=== PATIENT | female | born 1995 | race African-American/Black ===

== ENCOUNTER 2016-06-21 22:44 | Emergency (ER) | payer OTHER ==
[~2016-06-21] VITALS: Ht 170.2 cm; Wt 81.2 kg
[2016-06-21 22:51] VITALS: TEMP 37.3; Ht 170.2 cm; Wt 81.2 kg
[2016-06-21] MEDS ORDERED: SODIUM CHLORIDE 0.9% 1000ML 1,000 ML IV STA ×2 (23:10)
[2016-06-21] MEDS ORDERED: ONDANSETRON INJ 2 MG/ML 2 ML VIAL IV STA (23:10)
[2016-06-21] MEDS ORDERED: LIDOCAINE HCL 2% VISC SOLN 20 ML UDC PO STA (23:10)
[2016-06-21] MEDS ORDERED: ALUMINUM/MAGNESIUM SUSP 30 ML UDC PO STA (23:10)
[2016-06-21 23:33] VITALS: O2SAT 100
[2016-06-21 23:58] LABS: BASO % 0.3 %; BASO ABS # 0.02 K/uL (0-0.2); COMPLETE YES; HEMATOCRIT 33.4 % (37-47); IG% 0.2 %; LYMPH % 37.1 %; LYMPH ABS # 2.35 K/uL (1.2-3.4); MEAN CORPUSCULAR HEMOGLOBIN 31.8 pg (25-34); MEAN CORPUSCULAR HGB CONC 35.3 g/dl (32-36); MEAN PLATELET VOLUME 9.6 fL (7.4-10.4); MONO % 10.1 %; NEUT % 47.3 %; PLATELET COUNT 310 K/uL (130-400); RED BLOOD COUNT 3.71 M/uL (4.2-5.4); WHITE BLOOD COUNT 6.34 K/uL (4.8-10.8)
[2016-06-22 00:04] LABS: URINE APPEARANCE CLOUDY (CLEAR); URINE BILIRUBIN NEG (NEG); URINE COLOR YELLOW; URINE EPITHELIAL CELL AUTO >30 /lpf (0-5); URINE NITRITE NEG (NEG); URINE PH 6.5 (4.5-7.5); URINE SPECIFIC GRAVITY 1.024 (1.000-1.030); UROBILINOGEN NEG (NEG); ZZUR CULT IF INDIC CLEAN CATCH YES
[2016-06-22 00:09] LABS: MANUAL MICROSCOPIC REQUIRED? NO; REVIEW REQ? NO
[2016-06-22 00:18] LABS: ALT/SGPT 16 U/L (12-78); BLOOD UREA NITROGEN 8 mg/dl (7-18); BUN/CREATININE RATIO 11.7 (10-20); CALCIUM 9.1 mg/dl (8.5-10.1); CARBON DIOXIDE 20 mmol/L (21-32); CHLORIDE 106 mmol/L (98-107); CREATININE 0.72 mg/dl (0.60-1.20); GLUCOSE 81 mg/dl (70-99); POTASSIUM 3.3 mmol/L (3.5-5.1); SODIUM 138 mmol/L (136-145)
[2016-06-22 00:27] LABS: ALKALINE PHOSPHATASE 52 U/L (45-117); AST/SGOT 14 U/L (15-37)
[2016-06-22 00:38] LABS: PREG INTERNAL NEGATIVE QC NEG CLEAR BACKGROUND
[2016-06-22 00:39] LABS: PREG INTERNAL POSITIVE QC POS CONTROL LINE
[2016-06-22] MEDS ORDERED: OPTIRAY 320 IV PRN (01:00)
--- NOTE | 2016-06-22 05:02 | EMERGENCY ROOM VISIT NOTE ---
History First contact with patient: 23:02 Chief Complaint: ABDOMINAL PAIN Stated Complaint: STOMACH PAINS, VOMITING, DIZZY Nursing Triage Summary: pt recently took a 4 week trip to [facility] to visit family. pt reports just before she came home she began to feel ill. since being home (3-4 weeks) she has had constant abdominal pain, nausea and vomiting. denies rash. denies diarrhea. pain is central abdomin. pt reports decreased appetite and pain worsens with eating "anything" History of Present Illness The patient is a 21 year old female who presents to the Emergency Room with complaints of shortness of breath, upper abdominal pain, nausea, light headedness for the past 3 weeks to flu back from [place]. Patient does not smoke. Patient denies chest pain, fever, chills, leg pain or swelling, diarrhea. She states she has irregular menstrual cycles. Patient denies chance or . Review of Systems See HPI for pertinent positives & negatives. A total of 10 systems reviewed and were otherwise negative. Past Medical/Surgical History None Social History Smoking Status: Never Smoker Alcohol Use: occasionally Drug Use: none Occupation Status: [employer] student Current/Historical Medications No Active Prescriptions or Reported Meds Allergies Coded Allergies: No Known Allergies (Unverified , 06/21/16) Physical Exam Vital Signs Date Time Temp Pulse Resp B/P Pulse Ox O2 Delivery O2 Flow Rate FiO2 06/22/16 03:53 81 18 130/77 100 Room Air 06/22/16 01:21 71 16 126/67 100 Room Air 06/21/16 23:40 93 06/21/16 23:33 100 Room Air 06/21/16 22:51 37.3 87 18 151/106 99 Room Air Physical Exam VITALS: Vitals are noted on the nurse's note and reviewed by myself. Vital signs stable. GENERAL: Pleasant female, in no acute distress, nondiaphoretic, well-developed well-nourished. SKIN: The skin was without rashes, erythema, edema, or bruising. There is no tenting of the skin. Capillary reflex less than 2 seconds. HEAD: Normocephalic atraumatic. EARS: External auditory canals clear, tympanic membranes pearly novoa without erythema or effusion bilaterally. EYES: Pupils equal round and reactive to light and accommodation. Conjunctivae without injection, sclerae without icterus. Extraocular movements intact. NOSE: Patent, turbinates without inflammation or discharge. MOUTH: Mucous membranes moist. Pharynx without erythema or exudate. Uvula midline. Airway patent. Tongue does not deviate. NECK: Supple without nuchal rigidity. No lymphadenopathy. No thyromegaly. Cervical spine is nontender. No JVD. HEART: Regular rate and rhythm without murmurs gallops or rubs. LUNGS: Clear to auscultation bilaterally without wheezes, rales or rhonchi. No dullness to percussion. No retractions or accessory muscle use. ABDOMEN: Positive bowel sounds x 4. Normal tympanic percussion. Soft, minimally tender to palpation epigastric region, no CVA tenderness, without masses or organomegaly. Alaniz sign negative. No guarding or rebound tenderness. MUSCULOSKELETAL: No muscle atrophy, erythema, or edema noted. NEURO: Patient was alert and oriented to person place and time. Normal sensation to light and sharp touch. No focal neurological deficits. Medical Decision & Procedures Laboratory Results 06/21/16 23:35 Red Blood Count 3.71, Mean Corpuscular Volume 90.0, Mean Corpuscular Hemoglobin 31.8, Mean Corpuscular Hemoglobin Concent 35.3, Mean Platelet Volume 9.6, Neutrophils (%) (Auto) 47.3, Lymphocytes (%) (Auto) 37.1, Monocytes (%) (Auto) 10.1, Eosinophils (%) (Auto) 5.0, Basophils (%) (Auto) 0.3, Neutrophils # (Auto ) 3.00, Lymphocytes # (Auto) 2.35, Monocytes # (Auto) 0.64, Eosinophils # (Auto ) 0.32, Basophils # (Auto) 0.02 06/21/16 23:35 Test 06/21/16 23:35 06/21/16 23:45 White Blood Count 6.34 K/uL (4.8-10.8) Red Blood Count 3.71 M/uL (4.2-5.4) Hemoglobin 11.8 g/dL (12.0-16.0) Hematocrit 33.4 % (37-47) Mean Corpuscular Volume 90.0 fL (80-100) Mean Corpuscular Hemoglobin 31.8 pg (25-34) Mean Corpuscular Hemoglobin Concent 35.3 g/dl (32-36) Platelet Count 310 K/uL (130-400) Mean Platelet Volume 9.6 fL (7.4-10.4) Neutrophils (%) (Auto) 47.3 % Lymphocytes (%) (Auto) 37.1 % Monocytes (%) (Auto) 10.1 % Eosinophils (%) (Auto) 5.0 % Basophils (%) (Auto) 0.3 % Neutrophils # (Auto) 3.00 K/uL (1.4-6.5) Lymphocytes # (Auto) 2.35 K/uL (1.2-3.4) Monocytes # (Auto) 0.64 K/uL (0.11-0.59) Eosinophils # (Auto) 0.32 K/uL (0-0.5) Basophils # (Auto) 0.02 K/uL (0-0.2) RDW Standard Deviation 42.6 fL (36.4-46.3) RDW Coefficient of Variation 13.0 % (11.5-14.5) Immature Granulocyte % (Auto) 0.2 % Immature Granulocyte # (Auto) 0.01 K/uL (0.00-0.02) D-Dimer 910 ug/L FEU (0-500) Anion Gap 12.0 mmol/L (3-11) Est Creatinine Clear Calc Drug Dose 134.4 ml/min Estimated GFR () 137.8 Estimated GFR (Non- 118.9 BUN/Creatinine Ratio 11.7 (10-20) Calcium Level 9.1 mg/dl (8.5-10.1) Magnesium Level 2.0 mg/dl (1.8-2.4) Total Bilirubin 0.2 mg/dl (0.2-1) Direct Bilirubin < 0.1 mg/dl (0-0.2) Aspartate Amino Transf (AST/SGOT) 14 U/L (15-37) Alanine Aminotransferase (ALT/SGPT) 16 U/L (12-78) Alkaline Phosphatase 52 U/L (45-117) Total Creatine Kinase 80 U/L (26-192) Creatine Kinase MB < 0.5 ng/ml (0.5-3.6) Creatine Kinase MB Ratio (0-3.0) Troponin I < 0.015 ng/ml (0-0.045) Total Protein 7.6 gm/dl (6.4-8.2) Albumin 3.4 gm/dl (3.4-5.0) Lipase 152 U/L (73-393) Thyroid Stimulating Hormone (TSH) 1.010 uIu/ml (0.300-4.500) Human Chorionic Gonadotropin, Qual POS (NEG) Human Chorionic Gonadotropin, Quant 95010 mIU/mL Urine Color YELLOW Urine Appearance CLOUDY (CLEAR) Urine pH 6.5 (4.5-7.5) Urine Specific Blanco 1.024 (1.000-1.030) Urine Protein NEG (NEG) Urine Glucose (UA) NEG (NEG) Urine Ketones NEG (NEG) Urine Occult Blood NEG (NEG) Urine Nitrite NEG (NEG) Urine Bilirubin NEG (NEG) Urine Urobilinogen NEG (NEG) Urine Leukocyte Esterase TRACE (NEG) Urine WBC (Auto) 10-30 /hpf (0-5) Urine RBC (Auto) 0-4 /hpf (0-4) Urine Hyaline Casts (Auto) 1-5 /lpf (0-5) Urine Epithelial Cells (Auto) >30 /lpf (0-5) Urine Bacteria (Auto) 2+ (NEG) Medications Administered Medications (Trade) Dose Ordered Sig/Rashaun Route Start Time Stop Time Status Last Admin Dose Admin Lidocaine HCl (Viscous Lidocaine 2% Soln) 10 ml NOW STAT PO 06/21/16 23:10 06/21/16 23:12 DC 06/21/16 23:45 10 ML Al Hydroxide/Mg Hydroxide 30 ml 30 ml NOW STAT PO 06/21/16 23:10 06/21/16 23:12 DC 06/21/16 23:45 30 ML Sodium Chloride 1,000 ml @ 999 mls/hr Q1H1M STAT IV 06/21/16 23:10 06/22/16 00:10 DC 06/21/16 23:44 999 MLS/HR Sodium Chloride (Nss 1000ml) 1,000 ml @ 125 mls/hr Q8H STAT IV 06/21/16 23:10 06/22/16 07:09 06/22/16 01:23 125 MLS/HR Ondansetron HCl (Zofran Inj) 4 mg NOW STAT IV 06/21/16 23:10 06/21/16 23:13 DC 06/21/16 23:45 4 MG ED Course Prior records/ancillary studies reviewed. Triage Nursing notes reviewed. The patient's history was concerning for nausea, vomiting, shortness of breath and abdominal pain. Differential diagnosis: Etiologies such as PE, cardiac, , appendicitis, diverticulitis, PUD, biliary pathology, UTI, pancreatitis, obstruction, mesenteric ischemia, aortic pathology, infections, inflammatory bowel disease, renal colic, as well as others were entertained. Physical examination findings: As above. ER treatment provided: IV fluids On reassessment the patient felt better. Diagnostics interpreted by me: ECG: Normal sinus, normal intervals, no acute ST-T changes. Impression normal sinus interpreted by myself The labs revealed elevated d-dimer. Mild anemia. Positive test. Quant hCG 80,000, A positive Imaging studies: US OB 1st TRIMESTER: Single live intrauterine measuring 12 weeks 4 days with heart rate of 161 bpm. Debris noted in the bladder. Bilateral ovarian flow visualized. Radiologist: Beryl Navarro M.D. US RUQ: No gallstones or biliary ductal dilatation. Radiologist: Marco A Hunter M.D. Study ready at 01:12 and initial results transmitted CTA CHEST: No central pulmonary embolus. No effusion or consolidation. Mild cardiomegaly. 2-3 mm nodule in the left lung base. Radiologist: Marco A Hunter M.D. Exam and history seem consistent with . No acute findings were noted. Patient states she does not want to continue on with this and with like an . I informed her that the closest clinic would be in [place]. She was informed that after certain point that she can no longer have a and was advised to follow-up as soon as possible if that is her desired choice. She is also given information on [facility] here in the area in case she changed her mind and would to continue on with this . Patient had no bleeding on exam. She was well-appearing. She did not have acute abdomen on exam. Patient had no other complaints. She was tolerating fluids and requested to leave. Patient had no urinary symptoms. Urine culture was sent. She ambulate out of the ER without difficulties. By the evaluation outlined above emergent etiologies such as appendicitis, diverticulitis, PUD, biliary pathology, UTI, pancreatitis, obstruction, mesenteric ischemia, aortic pathology, infections, inflammatory bowel disease, renal colic, as well as others were deemed relatively unlikely. The pt informed about the findings as listed above. All questions were answered and pleased with the treatment. Return instructions were outlined and the patient was discharged in stable condition. Referral: The patient was referred to [facility] for follow-up in 2 to 3 days for a recheck of the current condition. Case reviewed with my attending Medical Decision As above Impression Primary Impression: Departure Information Dispostion Home / Self-Care Condition GOOD Prescriptions No Active Prescriptions or Reported Meds Referrals No Doctor, Assigned (PCP) Patient Instructions My [facility] Additional Instructions You are currently . Do not take any medications until cleared by the OB /ASSISTANT PURCHASING MANAGER or pharmacist. Recommend to start to take a . This is over-the- counter. If you do desire an , recommend that you follow-up as soon as possible as you are currently 12 weeks along. [place] has the closest clinic. Zofran(odansetron) tablets 4mg: Take one and allow it to dissolve in your mouth every four to six hours as needed for nausea or vomiting. Acetaminophen(Tylenol) may be used for fever or pain. Use 1000mg every six hours as needed. Avoid using more than 3000mg in a 24 hour period. Rest and drink plenty of fluids as tolerated. Slow sips of water or sports drinks are recommended instead of large amounts all at once. Continue current medications. Once your stomach is settled start with a clear liquid diet (jello, soup broth, etc.) and then advance as tolerated. You should avoid full, heavy meals for about 24 hrs from the time your symptoms resolved. Return to the ER for persistent vomiting, fevers, abdominal pain, chest pains, difficulty breathing, black or bloody stools, worsening of your condition, or as needed. Follow up with [facility] in 2-3 days for a recheck of your current condition. Call for an appointment
[2016-06-22 05:14] VITALS: BP 126/79; PULSE 71; O2SAT 97
[2016-06-22] MEDS ORDERED: ONDANSETRON HOME PACK 4MG OD TAB PO ONE (05:15)
--- NOTE | 2016-06-22 07:08 | DIAGNOSTIC IMAGING REPORT ---
ULTRASOUND RIGHT UPPER QUADRANT ABDOMEN CLINICAL HISTORY: Right upper quadrant abdominal pain. COMPARISON STUDY: No priors. TECHNIQUE: Real-time, grayscale, and color flow sonography of the right upper quadrant of the abdomen was performed. Images are reviewed in the transverse and longitudinal planes. FINDINGS: Liver: The liver is normal in size and echotexture. There is no intrahepatic biliary ductal dilatation. The main portal vein is patent. Gallbladder: The gallbladder is normal in appearance. No gallstones are identified. There is no gallbladder wall thickening or pericholecystic fluid. A sonographic Alaniz's sign is reportedly absent. The common bile duct measures up to 0.3 cm in diameter. Pancreas: Visualized portions of the pancreatic head and body are normal in appearance. Right kidney: Survey images of the right kidney demonstrate normal size and echotexture. There is no hydronephrosis. Ascites: None. IMPRESSION: Unremarkable sonographic assessment of the right upper quadrant. No gallstones are seen. Electronically signed by: Dominick Regalado M.D. 06/22/2016 7:07 AM Dictated Date/Time: 06/22/2016 7:07 AM
--- NOTE | 2016-06-22 07:18 | DIAGNOSTIC IMAGING REPORT ---
SINGLE VIEW CHEST CLINICAL HISTORY: Atypical chest pain. FINDINGS: An AP, portable, upright chest radiograph is obtained. No prior studies are available for comparison at the time of dictation. The cardiomediastinal silhouette is unremarkable. The lungs and pleural spaces are clear. No pneumothorax is seen. The bony thorax is grossly intact. A left nipple piercing is noted. IMPRESSION: No active disease in the chest. Electronically signed by: Dominick Regalado M.D. 06/22/2016 7:17 AM Dictated Date/Time: 06/22/2016 7:17 AM
--- NOTE | 2016-06-22 07:40 | DIAGNOSTIC IMAGING REPORT ---
CT ANGIOGRAM OF THE CHEST CLINICAL HISTORY: Dyspnea. COMPARISON STUDY: Chest x-ray dated 06/21/16. TECHNIQUE: Following the IV administration of 91 cc of Optiray 320, CT angiogram of the chest was performed from the upper abdomen to the thoracic inlet utilizing the pulmonary embolus protocol. Images are reviewed in the axial, sagittal, and coronal planes. 3-D MIPS images are created and assessed. IV contrast was administered without complication. There is streak artifact from bilateral nipple piercings. CT DOSE: 260.38 mGy.cm FINDINGS: Thyroid: Imaged portions of the thyroid gland are normal in size and attenuation. Thoracic aorta: The thoracic aorta is normal in caliber and demonstrates standard 3-vessel arch anatomy. No dissection is seen. Pulmonary vasculature: The pulmonary trunk is normal in caliber. There are no filling defects identified in main, lobar, or segmental pulmonary branches to suggest pulmonary embolus. Heart: The heart is normal in size and configuration, and without pericardial effusion. Lungs and pleural spaces: A 4 mm left lower lobe pulmonary nodule is seen on axial image #117. This is of doubtful significance in this age group. No airspace consolidation or pleural effusion is identified. The trachea and central airways are clear. Mediastinum: There is no mediastinal lymphadenopathy. Yvonne: Clear. Axillae: There is no axillary lymphadenopathy. Upper abdomen: Partially visualized upper abdominal viscera is within normal limits. Skeletal structures: No lytic or blastic bony lesions are seen. IMPRESSION: 1. There is no evidence of pulmonary embolus in the main, lobar, or segmental pulmonary arteries. 2. The lungs are clear. Electronically signed by: Dominick Regalado M.D. 06/22/2016 7:39 AM Dictated Date/Time: 06/22/2016 7:36 AM
--- NOTE | 2016-06-22 08:24 | DIAGNOSTIC IMAGING REPORT ---
ULTRASOUND LIMITED CLINICAL HISTORY: . Generalized abdominal pain. COMPARISON STUDY: No priors. TECHNIQUE: Real-time, grayscale, and color Doppler sonography of the fetus and gravid uterus is performed. FINDINGS: There is a single live uterine gestation estimated heart rate of 161 bpm. The crown-rump length measures 6.08 cm, corresponding to an estimate age of 12 weeks 4 days. The cervix appears closed. The placenta is posterior. The anatomic fluid volume is grossly normal. A normal yolk sac is identified. The ovaries are normal in appearance. The right ovary measures 3.9 x 1.8 x 2.0 cm and the left ovary measures 2.9 x 1.3 x 3.1 cm. Normal Doppler waveforms are shown to both ovaries. Mobile debris is noted within the bladder. IMPRESSION: 1. There is a single live uterine gestation with an estimated age of 12 weeks 4 days by crown-rump length measurement. 2. Note that this does not constitute a dedicated anatomic scan. 3. The ovaries are normal in appearance. 4. Mobile debris is noted within the bladder lumen. Correlation to urinalysis will be required. Electronically signed by: Dominick Regalado M.D. 06/22/2016 8:22 AM Dictated Date/Time: 06/22/2016 8:19 AM
== END 2016-06-22 05:17 | disposition home or self-care (01) ==
LOC: C.EDB 22:46 → C.EDA 06-22 05:17
DX: O26.91 Pregnancy related conditions, unspecified, first trimester (principal); Z3A.12 12 weeks gestation of pregnancy

== ENCOUNTER 2016-10-27 23:12 | Emergency (ER) | payer OTHER ==
[~2016-10-27] VITALS: Ht 170.2 cm; Wt 81.4 kg
[2016-10-27 23:18] VITALS: TEMP 36.8; Ht 170.2 cm; Wt 81.4 kg
[2016-10-27] MEDS ORDERED: SODIUM CHLORIDE 0.9% 1000ML 1,000 ML IV STA (23:51)
--- NOTE | 2016-10-27 23:53 | EMERGENCY ROOM VISIT NOTE ---
History Report prepared by Rad: Tavon Carpenter Under the Supervision of: Dr. Jazzmine Duran D.O. First contact with patient: 23:21 Chief Complaint: SORETHROAT Stated Complaint: SORE THROAT, EAR ACHE History of Present Illness The patient is a 21 year old female who presents to the Emergency Room with complaints of throat pain starting a few days ago and worsening this morning. She describes it as a burning pain. She is unable to swallow her saliva due to the severity of the pain. She has worsening pain with swallowing. She also complains of left ear pain. She denies fevers, chills, cough, abdominal pain, urinary symptoms, diarrhea, or any other complaints. She does not have any medical problems. Source of History: patient Onset: a few days ago Position: throat Quality: burning Timing: worsening Associated Symptoms: No fevers, No chills, No cough, No abdominal pain, No diarrhea, No urinary symptoms Review of Systems See HPI for pertinent positives & negatives. A total of 10 systems reviewed and were otherwise negative. Past Medical & Surgical Medical Problems: (1) Family History Patient reports no known family medical history. Social History Smoking Status: Never Smoker Alcohol Use: occasionally Drug Use: none Marital Status: single Occupation Status: [employer] student Current/Historical Medications No Active Prescriptions or Reported Meds Allergies Coded Allergies: No Known Allergies (Unverified , 06/21/16) Physical Exam Vital Signs Date Time Temp Pulse Resp B/P (MAP) Pulse Ox O2 Delivery O2 Flow Rate FiO2 10/28/16 02:30 72 20 130/76 98 10/28/16 00:27 84 18 123/90 100 Room Air 10/27/16 23:18 36.8 96 16 132/87 99 Room Air 10/27/16 23:18 99 Room Air Physical Exam HEENT: Head - normocephalic and atraumatic Pupils are equal, round, and reactive to light. Extraocular eye muscles are intact, and sclera are anicteric. Ears- moderate cerumen in the right, left TM is normal. Nose - moist nasal mucosa without discharge. Mouth - moist buccal mucosa. Oropharynx is mildly erythematous. There is no tonsillar exudate or edema noted. Neck: Supple; no nuchal rigidity. Anterior and posterior cervical adenopathy. Heart: Regular rate and rhythm. There is a normal S1 and S2 with no murmurs, clicks, or gallops appreciated. Lungs: Clear to auscultation bilaterally with no wheezes, rales, or rhonchi. Abdomen: Soft, completely nontender, nondistended, with good bowel sounds. There are no palpable pulsatile masses or hepatosplenomegaly. There is no guarding, rigidity, or rebound noted. Extremities: No evidence of cyanosis, clubbing, or edema. There are easily palpable peripheral pulses. Skin: warm and dry with good turgor and no rashes. Medical Decision & Procedures Laboratory Results 10/27/16 23:45 Red Blood Count 4.25, Mean Corpuscular Volume 92.7, Mean Corpuscular Hemoglobin 30.6, Mean Corpuscular Hemoglobin Concent 33.0, Mean Platelet Volume 9.6, Neutrophils (%) (Auto) 60.0, Lymphocytes (%) (Auto) 28.5, Monocytes (%) (Auto) 9.1, Eosinophils (%) (Auto) 1.8, Basophils (%) (Auto) 0.5, Neutrophils # (Auto) 4.53, Lymphocytes # (Auto) 2.16, Monocytes # (Auto) 0.69, Eosinophils # (Auto) 0.14, Basophils # (Auto) 0.04 10/27/16 23:45 Test 10/27/16 23:45 White Blood Count 7.57 K/uL (4.8-10.8) Red Blood Count 4.25 M/uL (4.2-5.4) Hemoglobin 13.0 g/dL (12.0-16.0) Hematocrit 39.4 % (37-47) Mean Corpuscular Volume 92.7 fL (80-100) Mean Corpuscular Hemoglobin 30.6 pg (25-34) Mean Corpuscular Hemoglobin Concent 33.0 g/dl (32-36) Platelet Count 307 K/uL (130-400) Mean Platelet Volume 9.6 fL (7.4-10.4) Neutrophils (%) (Auto) 60.0 % Lymphocytes (%) (Auto) 28.5 % Monocytes (%) (Auto) 9.1 % Eosinophils (%) (Auto) 1.8 % Basophils (%) (Auto) 0.5 % Neutrophils # (Auto) 4.53 K/uL (1.4-6.5) Lymphocytes # (Auto) 2.16 K/uL (1.2-3.4) Monocytes # (Auto) 0.69 K/uL (0.11-0.59) Eosinophils # (Auto) 0.14 K/uL (0-0.5) Basophils # (Auto) 0.04 K/uL (0-0.2) RDW Standard Deviation 41.3 fL (36.4-46.3) RDW Coefficient of Variation 12.2 % (11.5-14.5) Immature Granulocyte % (Auto) 0.1 % Immature Granulocyte # (Auto) 0.01 K/uL (0.00-0.02) Anion Gap 6.0 mmol/L (3-11) Est Creatinine Clear Calc Drug Dose 104.1 ml/min Estimated GFR () 101.1 Estimated GFR (Non- 87.2 BUN/Creatinine Ratio 13.2 (10-20) Calcium Level 8.7 mg/dl (8.5-10.1) Monoscreen NEG (NEG) Laboratory results per my review. Medications Administered Medications (Trade) Dose Ordered Sig/Rashaun Route Start Time Stop Time Status Last Admin Dose Admin Dexamethasone Sodium Phosphate (Decadron Inj) 10 mg NOW ONCE IV 10/28/16 00:00 10/28/16 00:01 DC 10/28/16 00:00 10 MG Sodium Chloride 1,000 ml @ 999 mls/hr Q1H1M STAT IV 10/27/16 23:51 10/28/16 00:51 DC 10/27/16 23:59 999 MLS/HR Ketorolac Tromethamine (Toradol Inj) 30 mg NOW STAT IV 10/28/16 01:40 10/28/16 01:41 DC 10/28/16 01:45 30 MG Procedure Sodium Chloride 1000 ml @ 999 mls/hr IV, Decadron Inj 10 mg IV, Toradol Inj 30 mg IV ED Course 2321: Past medical records reviewed. The patient was evaluated in room C02B. A complete history and physical exam was performed. An IV lock was initiated and labs were drawn as above. Her throat was swabbed for strep and was negative. 2351: Sodium Chloride 1000 ml @ 999 mls/hr IV 0000: Decadron Inj 10 mg IV 0139: I reevaluated the patient. She had very little relief from the Decadron. 0140: Toradol Inj 30 mg IV 0220: Upon reevaluation, the patient is resting comfortably. I discussed findings and results with her. She verbalized agreement of the treatment plan. She was discharged home. Medical Decision This patient presents to the Emergency Room with the chief complaint of throat pain. Differential diagnosis includes but is not limited to tonsillitis, strep pharyngitis, mono, retropharyngeal abscess. Her labs showed mono spot was negative, normal renal function and glucose, normal white count, and stable H& H. I attest that I have personally reviewed the patient's current medication list. Blood Pressure Screening: Patient was found to have a slightly elevated blood pressure due to circumstances. I do not believe that the patient requires hypertension monitoring. This is a 21-year-old male patient presents to emergency department with a sore throat and pain with swallowing. On physical exam, there is no sign of a peritonsillar abscess or concern for retropharyngeal abscess. The patient was afebrile and had no leukocytosis. She did have some anterior and posterior cervical lymphadenopathy. A Monospot test was obtained and was negative. The patient was encouraged to use NSAIDs for pain and to drink plenty of clear liquids. She plans to follow-up with her PCP when she returns home next week if the pain persists. If symptoms worsen, she can return here to the ER. Impression Primary Impression: Sore throat Scribe Attestation The scribe's documentation has been prepared under my direction and personally reviewed by me in its entirety. I confirm that the note above accurately reflects all work, treatment, procedures, and medical decision making performed by me. Departure Information Dispostion Home / Self-Care Prescriptions No Active Prescriptions or Reported Meds Referrals No Doctor, Assigned (PCP) Forms HOME CARE DOCUMENTATION FORM, IMPORTANT VISIT INFORMATION Patient Instructions My [facility], Sore Throat, Sore Throats Self Care Additional Instructions Rest. Take Motrin - 600mg every 6 hours with food for pain. Keep yourself well-hydrated. Follow up with PCP at home if sore throat continues
[2016-10-28] MEDS ORDERED: DEXAMETHASONE SOD INJ 10 MG/ML VIAL IV ONE
[2016-10-28 00:05] LABS: BASO % 0.5 %; BASO ABS # 0.04 K/uL (0-0.2); COMPLETE YES; EOS % 1.8 %; HEMATOCRIT 39.4 % (37-47); IG% 0.1 %; LYMPH % 28.5 %; LYMPH ABS # 2.16 K/uL (1.2-3.4); MEAN CELL VOLUME 92.7 fL (80-100); MEAN CORPUSCULAR HEMOGLOBIN 30.6 pg (25-34); MEAN PLATELET VOLUME 9.6 fL (7.4-10.4); MONO % 9.1 %; PLATELET COUNT 307 K/uL (130-400); RED BLOOD COUNT 4.25 M/uL (4.2-5.4); WHITE BLOOD COUNT 7.57 K/uL (4.8-10.8)
[2016-10-28 00:25] LABS: BUN/CREATININE RATIO 13.2 (10-20); CALCIUM 8.7 mg/dl (8.5-10.1); CREATININE 0.93 mg/dl (0.60-1.20); POTASSIUM 3.7 mmol/L (3.5-5.1)
[2016-10-28] MEDS ORDERED: KETOROLAC TROMETHAMINE 30 MG/ML VIAL IV STA (01:40)
[2016-10-28 02:30] VITALS: BP 130/76; PULSE 72; O2SAT 98
== END 2016-10-28 02:30 | disposition home or self-care (01) ==
LOC: C.EDB 23:14 → C.EDC 10-28 02:30
DX: J02.9 Acute pharyngitis, unspecified (principal)